=== PATIENT | female | born 1990 | race Caucasian/White ===

== ENCOUNTER 2025-08-25 10:20 | Observation (INO) ==
[2025-08-25] MEDS: SODIUM CHLORIDE 0.9% 1,000 ML IV SCH (11:00)
[2025-08-25] MEDS: ONDANSETRON INJ 2 MG/ML 2 ML VIAL IV STA ×2 (11:00→12:35)
[2025-08-25 11:04] LABS: Hematocrit (blood only) 44.9 % (37.0-47.0); Hemoglobin 14.9 g/dL (12.0-16.0); Immature Granulocytes # (auto) 0.03 K/uL (0.01-0.20); Immature Granulocytes % (auto) 0.4 %; Mean Corpuscular Hemoglobin 29.6 pg (25.0-34.0); Mean Corpuscular Volume 89.3 fL (80.0-100.0); Platelet Count 212 K/uL (130-400); RDW Standard Deviation 42.2 fL (36.4-46.3); Red Blood Count 5.03 M/uL (4.20-5.40); White Blood Count 7.73 K/ul (4.8-10.8)
--- NOTE | 2025-08-25 11:04 | Emergency Department Note ---
Impression & Plan Vomiting, Diffuse abdominal pain, Unintentional Tylenol overdose ED Provider Note NAME: EULALIA CHEN AGE: 35 SEX: F : 1990 ARRIVES VIA: Walk-In INFORMANT: [Patient] ED PROVIDER(S): [Mian Aguila MD] CHIEF COMPLAINT: Vomiting HISTORY OF PRESENT ILLNESS: The patient is a 35-year-old female who states that she was having dental pain yesterday and as a result, she took 2500 mg of Tylenol multiple times throughout the day (500 mg tablets x 5). She took the 2500 mg amount all at once. She thinks that she may have taken the 2500 mg dose of Tylenol 8-9 times throughout the day yesterday from 4:30 AM till 6 PM last night. Now, for the last 14 hours, she has been vomiting and has crampy abdominal pain. No diarrhea. No cough or cold or congestion. No other complaints or concerns. Patient denies suicidal intent. She states that she was just desperate for something to help with her pain. PMHx/PSHx/Social Hx: See Below PHYSICAL EXAM: GENERAL: Patient is in no acute distress. HEENT: No acute trauma, normocephalic atraumatic, mucous membranes moist, no nasal congestion. NECK: No stridor, no adenopathy, no meningismus, trachea is midline. LUNGS: Clear to auscultation bilaterally, no wheeze, no rhonchi, breath sounds equal. HEART: Mildly tachycardic, regular rhythm, no murmurs. ABDOMEN: Soft, mildly diffusely tender, no peritonitis. EXTREMITIES: No cyanosis, full range of motion of all the joints without pain or difficulty. NEUROLOGIC: Oriented x 3, no acute motor or sensory deficits, no focal weakness. SKIN: No jaundice, no diaphoresis. DIFFERENTIAL DIAGNOSIS: Toxic Tylenol overdose, liver injury, dehydration, electrolyte imbalance, among others. EMERGENCY DEPARTMENT PROCEDURES: MEDICAL DECISION MAKING: There is no leukocytosis or concerning anemia. There is a normal platelet count. No bandemia. No coagulopathy. No renal failure or significant electrolyte abnormality. No concerning liver enzyme elevation. testing was negative. Aspirin and alcohol levels were undetectable. Tylenol level was 11. Alcohol level was undetectable. Urine tox was negative. Urinalysis showed some potential dehydration, no infection. On exam, the patient was not toxic or febrile. She complained of nausea. I did speak with the poison center, they recommended the N-acetylcysteine protocol for the overdose as well as hospital admission. The N-acetylcysteine protocol was ordered IV. Patient received IV Zofran and IV saline. She received an additional dose of IV Zofran and a dose of IV Phenergan. The patient is in need of a hospital admission and further care for this accidental overdose. Because of concerns for potential liver injury from the large amount of Tylenol ingested, the N-acetylcysteine protocol was initiated IV. I spoke with case management, the on-call hospitalist was consulted. Prior/Outside records/notes reviewed: None EKG per my interpretation: Indication was overdose. The ECG shows a normal sinus rhythm with a rate of 62. There is poor R wave progression. There is no ST elevation, no PVCs. The QTc is 438. Imaging/x-ray results per my interpretation: Chronic Medical/Social conditions affecting care: None Care/Management discussed with: [facility]--[facility]. Case management and the on-call hospitalist. Level of care consideration(s): After review of the information above and other included data: --I believe the patient requires escalation of care to admission Critical Care Note: I have personally spent 46minutes of critical care time in the direct management of this patient. This includes bedside care, interpretation of diagnostic studies, and testing, discussion with consultants, patient, and family members, and other required patient management activities. This 46 minutes is in excess of all separately billable procedures. DISPOSITION: Admission Past Med/Surg History Problem List FH: cholecystectomy Unintentional Tylenol overdose (Acute) Diffuse abdominal pain (Acute) Vomiting (Acute) Medical History No significant medical problems Surgical History H/O: hysterectomy S/P gastric sleeve procedure Family History (Updated 08/25/25 @ 12:28 by Kirk Duarte MD) Father Alcohol use disorder Mother Mood disorder Social History Smoking Status: Never smoker Hx Substance Use: No Preferred Language: Lao Feels Safe at Home: Yes Allergies Allergies Allergy/AdvReac Type Severity Reaction Status Date / Time diphenhydramine Allergy Intermediate Hives Verified 08/25/25 10:59 kiran Allergy Itching Verified 08/25/25 10:59 Home Meds Home Medications Medication Instructions Recorded Confirmed No Known Home Medications 08/25/25 08/25/25 Results & Data (ED) Vital Signs Vital Signs - 24 hr 08/25/25 10:25 08/25/25 12:20 Temperature 36.6 C Temperature Source Temporal Artery Scan Pulse Rate 101 H Pulse Rate [Finger] 88 Pulse Rhythm [Finger] Regular Pulse Strength [Finger] Normal Respiratory Rate 20 16 Respiratory Effort / Characteristics Non-Labored Spontaneous Non-Labored Spontaneous Respiratory Depth Normal Normal Respiratory Pattern Regular Regular Blood Pressure 134/97 Blood Pressure [Right Arm] 128/81 Blood Pressure Mean 109 Blood Pressure Mean [Right Arm] 96 Pulse Oximetry 95 99 Oxygen Delivery Method Room Air Room Air Sepsis Recent Fever Within 48 Hours No Sepsis New/Unexplained Change in Mental Status N/A Sepsis Action Taken by Nursing No Action Required Home Medications Current Medication List: was personally reviewed by me Laboratory Data Attestation: I reviewed the patient's lab results. 08/25/25 10:45 08/25/25 10:45 Lab Results 08/25/25 08/25/25 Range/Units 10:45 11:55 WBC 7.73 (4.8-10.8) K/ul RBC 5.03 (4.20-5.40) M/uL Hgb 14.9 (12.0-16.0) g/dL Hct 44.9 (37.0-47.0) % MCV 89.3 (80.0-100.0) fL MCH 29.6 (25.0-34.0) pg MCHC 33.2 (32.0-36.0) g/dL RDW Std Deviation 42.2 (36.4-46.3) fL RDW Coeff of [place] 12.9 (11.5-14.5) % Plt Count 212 (130-400) K/uL MPV 11.9 (9.4-12.4) fL Immature Gran % (Auto) 0.4 % Neut % (Auto) 86.1 % Lymph % (Auto) 9.7 % [place] % (Auto) 3.5 % Eos % (Auto) 0.0 % Baso % (Auto) 0.3 % Neut # (Auto) 6.66 H (1.40-6.50) K/uL Lymph # (Auto) 0.75 L (1.20-3.40) K/uL [place] # (Auto) 0.27 (0.11-0.59) K/uL Eos # (Auto) 0.00 (0.00-0.50) K/uL Baso # (Auto) 0.02 (0.00-0.20) K/uL Immature Gran # (Auto) 0.03 (0.01-0.20) K/uL PT 11.6 (9.0-12.0) Seconds INR 1.1 (0.9-1.1) APTT 29 (21-31) Seconds PTT Ratio 1.1 Sodium 138 (136-145) mmol/L Potassium 3.7 (3.5-5.1) mmol/L Chloride 104 (98-107) mmol/L Carbon Dioxide 26 (21-32) mmol/L Anion Gap 8 (3-11) BUN 8 (6-23) mg/dl Creatinine 0.83 (0.6-1.2) mg/dl Est Cr Clr Drug Dosing 112.7 ml/min eGFR 93.64 BUN/Creatinine Ratio 9.6 L (10-20) Glucose 115 H (70-99(Fasting)) mg/dl Calcium 9.4 (8.6-10.3) mg/dl Magnesium 1.9 (1.7-2.4) mg/dl Total Bilirubin 0.6 (0.2-1.0) mg/dl AST 16 (13-39) U/L ALT 10 (7-52) U/L Alkaline Phosphatase 62 (34-104) U/L Total Protein 7.5 (6.0-8.3) gm/dl Albumin 4.5 (3.4-5.0) gm/dl Globulin 3.0 (2.5-4.0) gm/dl Albumin/Globulin Ratio 1.5 (0.9-2) HCG, Qual Negative (Negative) Urine Color Yellow Urine Appearance Clear (Clear) Urine pH 6.0 (4.5-7.5) Ur Specific [place] 1.008 (1.000-1.030) Urine Protein Negative (Negative) Urine Glucose (UA) Negative (Negative) Urine Ketones Trace H (Negative) Urine Blood Negative (Negative) Urine Nitrite Negative (Negative) Urine Bilirubin Negative (Negative) Urine Urobilinogen Negative (Negative) Ur Leukocyte Esterase Negative (Negative) Urine Comment Salicylates < 3.0 L (3.0-30) mg/dl Urine Opiates Screen Neg (Neg) Ur Methadone, Qual Neg (Neg) Urine Fentanyl Screen Neg (Neg) Acetaminophen 11 (10-30) ug/ml Urine Barbiturates Neg (Neg) Ur Phencyclidine (PCP) Neg (Neg) U Amphetamin/Meth Scrn Neg (Neg) MDMA (Ecstasy) Screen Neg (Neg) U Benzodiazepines Scrn Neg (Neg) Ur Cocaine Metabolite Neg (Neg) U Marijuana (THC) Screen Neg (Neg) Ethyl Alcohol mg/dL < 10.0 (<10.0) mg/dl Administered Medications Discontinued Medications Acetylcysteine (Acetylcysteine Iv 21 Hr Regimen (>40kg)) 1 each IV NOW STA; Protocol Stop: 08/25/25 11:10 Last Admin: 08/25/25 13:13 Dose: Not Given Documented By: TAYLOR Sodium Chloride (Nss) 1,000 mls @ 999 mls/hr IV .Q1H1M EFRAIN Stop: 08/25/25 12:00 Last Infusion: 08/25/25 12:05 Dose: Infused Documented By: yulisa Admin: 08/25/25 11:00 Dose: 999 mls/hr Documented By: yulisa Acetylcysteine 15,000 mg/ (Dextrose) 275 mls @ 200 mls/hr IV ONCE ONE; Protocol Stop: 08/25/25 12:34 Last Admin: 08/25/25 11:51 Dose: 200 mls/hr Documented By: yulisa Promethazine HCl (Phenergan) 6.25 mg in 50.25 mls @ 201 mls/hr IV NOW STA Stop: 08/25/25 12:39 Last Infusion: 08/25/25 12:57 Dose: Infused Documented By: yulisa Admin: 08/25/25 12:34 Dose: 201 mls/hr Documented By: yulisa Miscellaneous (Stat Iv/Im) 1 each N/A NOW STA Stop: 08/25/25 11:10 Last Admin: 08/25/25 13:14 Dose: Not Given Documented By: TAYLOR Ondansetron HCl (Ondansetron Inj 2 Mg/Ml 2 Ml Vial) 4 mg IV NOW STA Stop: 08/25/25 10:52 Last Admin: 08/25/25 11:00 Dose: 4 mg Documented By: yulisa Ondansetron HCl (Ondansetron Inj 2 Mg/Ml 2 Ml Vial) 4 mg IV NOW STA Stop: 08/25/25 12:26 Last Admin: 08/25/25 12:35 Dose: 4 mg Documented By: yulisa Discharge Plan Visit Data Chief Complaint: Vomiting Stated Complaint: VOMITTING, LIGHTHEADED ED Provider: Mina Aguila Discharge Problem: Vomiting, Diffuse abdominal pain, Unintentional Tylenol overdose Patient Disposition: Admitted As Inpatient Condition: Serious Forms Stand Alone Forms: [employer] Prescriptions Prescriptions: No Action No Known Home Medications Referrals Referrals: PCP,NO [Physician] - Discharge Problem: Vomiting Qualifiers: Vomiting type: unspecified Nausea presence: with nausea Qualified Code(s): R 11.2 - Nausea with vomiting, unspecified Unintentional Tylenol overdose Qualifiers: Encounter type: initial encounter Qualified Code(s): T39.1X1A - Poisoning by 4- Aminophenol derivatives, accidental (unintentional), initial encounter
[2025-08-25 11:23] LABS: Alanine Aminotransferase 10.0 U/L (7-52); Albumin Globulin Ratio 1.5 (0.9-2); Albumin Level 4.5 gm/dl (3.4-5.0); Alkaline Phosphatase 62.0 U/L (34-104); Anion Gap 8.0 (3-11); Bilirubin,Total 0.6 mg/dl (0.2-1.0); Blood Urea Nitrogen 8.0 mg/dl (6-23); Calcium 9.4 mg/dl (8.6-10.3); Carbon Dioxide 26.0 mmol/L (21-32); Chloride 104.0 mmol/L (98-107); Creatinine Clr Calc Pharmacy 112.7 ml/min; Globulin 3.0 gm/dl (2.5-4.0); Glucose 115.0 mg/dl (70-99(Fasting)); Magnesium 1.9 mg/dl (1.7-2.4); Potassium 3.7 mmol/L (3.5-5.1); Pregnancy Test, Serum Negative (Negative); Sodium 138.0 mmol/L (136-145); Total Protein 7.5 gm/dl (6.0-8.3)
[2025-08-25 11:25] LABS: Acetaminophen 11 ug/ml (10-30); Salicylate < 3.0 mg/dl (3.0-30)
[2025-08-25 11:33] LABS: INR 1.1 (0.9-1.1); Partial Thromboplastin Time 29 Seconds (21-31); Prothrombin Time 11.6 Seconds (9.0-12.0)
--- NOTE | 2025-08-25 11:52 | History & Physical Report ---
Date of Service August 25, 2025 Assessment & Plan (1) Unintentional Tylenol overdose: (2) Vomiting: Plan Unintentional Tylenol overdose Intractable nausea, vomiting Dehydration due to above --KUB pending -- Acetaminophen level 11 --INR 1.1 -- LFTs within normal limits --Drug screen pending Avoid Tylenol, hepatotoxic agents Poison control involved Started on acetylcysteine protocol Liquid diet for now Gentle IV fluids Monitor LFTs, INR Recheck acetaminophen level tomorrow Advance diet as tolerated Antiemetics as needed Hyperglycemia Check HbA1c Morbid obesity S/P gastric sleeve surgery Previously on Wegovy--currently discontinued due to insurance issues BMI 43 Other chronic conditions: Mood disorder-previously on bupropion. Stable PCOS Dysmenorrhea S/P hysterectomy Currently not on any medications DVT Px: Heparin SQ CODE STATUS Full code Disposition Admit to [facility] I personally interviewed and examined the patient at bedside. Reviewed blood work, EKG, imaging studies. Discussed with the ED staff. I spent a total [id number] coordinating, documenting, and providing care for this patient. History of Present Illness Chief Complaint: Nausea, vomiting Primary Care Provider: Fely Archer MD Patient is a 35-year-old female with history of mood disorder, obesity S/P gastric sleeve surgery, PCOS, dysmenorrhea S/P hysterectomy and no other significant past medical history presents with intractable nausea, vomiting and abdominal discomfort secondary to vomiting. Patient states that she had dental work (root canal for dental caries) on Wednesday and was supposed to have crown placement on August 30. While she was at a camping site, patient developed significant tooth ache yesterday and when called her dentist, he recommended to take Tylenol for pain control. Patient admits to take 5 pills of 500 mg acetaminophen tabs about 8-9 times yesterday. She started to take at 4 AM and her last dose was 6 PM yesterday. She had several episodes of nausea, vomiting which started overnight associated with some abdominal soreness. She admits to taking Zofran but was still not able to keep food/fluids. Her last bowel movement was this morning. She also noticed to have dizziness and so came to ED for further evaluation. Denies any history of chest pain, dyspnea, pedal edema, cough, fever, chills, headache, blood in stools, diarrhea, dysuria, hematuria. Currently states that her dental pain resolved. ED physician discussed with poison control, on recommendations from poison control patient was started on acetylcysteine. Patient denies any suicidal thoughts. Allergies Allergy/AdvReac Type Severity Reaction Status Date / Time diphenhydramine Allergy Intermediate Hives Verified 08/25/25 10:59 kiran Allergy Itching Verified 08/25/25 10:59 Home Medications Medication Instructions Recorded Confirmed Type No Known Home Medications 08/25/25 08/25/25 History Past Med/Surg History Problem List (Updated 08/25/25 @ 12:27 by Kirk Duarte MD) S/P gastric sleeve procedure FH: cholecystectomy H/O: hysterectomy Unintentional Tylenol overdose (Acute) Diffuse abdominal pain (Acute) Vomiting (Acute) Family History (Updated 08/25/25 @ 12:28 by Kirk Duarte MD) Father Alcohol use disorder Mother Mood disorder Social History (Updated 08/25/25 @ 12:29 by Kirk Duarte MD) Smoking Status: Never smoker Hx Substance Use: No Preferred Language: Wolof Feels Safe at Home: Yes Review of Systems Review of Systems: All systems reviewed & are unremarkable except as noted in Subjective Physical Exam Physical Exam: Physical Exam: Vitals signs as noted above General Appearance: Obese, no apparent distress Head: normocephalic, Atraumatic Eyes: normal inspection, EOMI Neck: supple, Trachea midline Respiratory/Chest: Normal breath sounds, CTA, No accessory muscle use Cardiovascular: S1, S2, No murmur Abdomen/GI:Soft, Non tender, Bowel sounds present Extremities/Musculoskeletal:normal inspection, no edema Neurologic/Psych:AAOX3, grossly no focal neurological deficits Skin: normal color, warm Results & Data Results & Data Vital Signs (Past 12 Hours) Vital Signs Temp Pulse Resp BP Pulse Ox O2 Del Method 08/25/25 10:25 36.6 C 101 H 20 134/97 95 Room Air Laboratory Results Short CBC 08/25/25 Range/Units 10:45 WBC 7.73 (4.8-10.8) K/ul Hgb 14.9 (12.0-16.0) g/dL Hct 44.9 (37.0-47.0) % Plt Count 212 (130-400) K/uL BMP 08/25/25 10:45 Sodium 138 Potassium 3.7 Chloride 104 Carbon Dioxide 26 BUN 8 Creatinine 0.83 Glucose 115 H Calcium 9.4 Liver Function 08/25/25 Range/Units 10:45 Total Bilirubin 0.6 (0.2-1.0) mg/dl AST 16 (13-39) U/L ALT 10 (7-52) U/L Alkaline Phosphatase 62 (34-104) U/L Albumin 4.5 (3.4-5.0) gm/dl Urine 08/25/25 Range/Units 11:55 Urine Color Yellow Urine Appearance Clear (Clear) Urine pH 6.0 (4.5-7.5) Ur Specific [place] 1.008 (1.000-1.030) Urine Protein Negative (Negative) Urine Glucose (UA) Negative (Negative) Diagnostic Findings --KUB pending ECG Additional Comments: --EKG: Normal sinus rhythm, low voltage, QTc 438 (1) Unintentional Tylenol overdose Encounter type: initial encounter Qualified Code(s): T39.1X1A - Poisoning by 4-Aminophenol derivatives, accidental (unintentional), initial encounter (2) Vomiting Nausea presence: with nausea Vomiting type: unspecified Qualified Code(s): R11.2 - Nausea with vomiting, unspecified
[2025-08-25 12:13] LABS: Appearance Urine Clear (Clear); Glucose Urine UA Negative (Negative)
[2025-08-25] MEDS: PROMETHAZINE 6.25 MG/50.25 ML BAG IV STA (12:34)
[2025-08-25 12:42] LABS: Amphetamines+Metham, Urine Neg (Neg); MDMA (Ecstacy), Urine Neg (Neg); Marijuana, Urine Neg (Neg)
[2025-08-25] MEDS: AcetylCYSTEINE IV 21 HR REGIMEN (>40KG) IV STA (13:13)
[2025-08-25] MEDS: STAT IV/IM STA (13:14)
[2025-08-25] MEDS ORDERED: POLYETHYLENE (MIRALAX) 17 GM PACK PO PRN (13:43)
[2025-08-25] MEDS: LACTATED RINGER'S 1,000 ML IV SCH (13:59)
[2025-08-25] MEDS: ONDANSETRON INJ 2 MG/ML 2 ML VIAL IV PRN (14:04)
--- NOTE | 2025-08-25 14:17 | Electrocardiogram Report ---
Test Reason : Blood Pressure : */* mmHG Vent. Rate : 62 BPM Atrial Rate : 62 BPM P-R Int : 130 ms QRS Dur : 80 ms QT Int : 432 ms P-R-T Axes : 67 -15 0 degrees QTcB Int : 438 ms Normal sinus rhythm No previous ECGs available Confirmed by Mike Tapia ([id number]) on 08/25/2025 2:16:43 PM Referred By: REFERRED SELF Confirmed By: Mike Tapia
--- NOTE | 2025-08-25 15:17 | XRay Report ---
2 views of the abdomen were obtained Findings: The bowel gas pattern appears unremarkable. No renal or ureteral calculi are seen. No foreign body is evident. No osseous abnormality is seen. Surgical clips are seen suggestive of prior cholecystectomy Impression: Unremarkable abdominal radiographs Electronically signed by Aneudy Downs 08-25-2025 3:17 PM
[2025-08-25] MEDS: PROMETHAZINE 6.25 MG/50.25 ML BAG IV PRN (16:16)
[2025-08-25] MEDS: HEPARIN SOD 5,000 UNIT/0.5 ML VIAL SQ SCH (20:10)
[2025-08-25] MEDS: KETOROLAC TROMETHAMINE 15 MG/ML VIAL IV ONE (23:04)
[2025-08-25] MEDS: OPTIRAY 320 100ml IV ONE (23:11)
--- NOTE | 2025-08-26 01:12 | Communication Note ---
Date of Service: August 26, 2025
--- NOTE | 2025-08-26 02:47 | CT Scan Report ---
Exam(s): CT ABDOMEN + PELVIS With Contrast IV Amt: 90 ml [id number] EXAM: CT Abdomen and Pelvis With Intravenous Contrast CLINICAL HISTORY: Abdominal Pain. TECHNIQUE: Axial computed tomography images of the abdomen and pelvis with intravenous contrast. CTDI is 27.83 mGy and DLP is 1497.24 mGy-cm. Automated exposure control was utilized for the study. A dose lowering technique was utilized adhering to the principles of ALARA. CONTRAST: Patient received 90 ml [id number] of IV contrast COMPARISON: KUB earlier today FINDINGS: Lung bases: Unremarkable. No mass. No consolidation. ABDOMEN: Liver: there is an indeterminate 1.6 cm lesion of the hepatic segment 7. No other suspicious hepatic lesion. Gallbladder and bile ducts: Unremarkable. No calcified stones. No ductal dilation. Pancreas: Unremarkable. No mass. No ductal dilation. Spleen: There is an indeterminate 1.7 cm splenic lesion. Adrenals: Unremarkable. No mass. Kidneys and ureters: Unremarkable. No solid mass. No hydronephrosis. Stomach and bowel: Diverticulosis. No obstruction. No mucosal thickening. PELVIS: Appendix: Normal appendix. Bladder: Unremarkable. No mass. Reproductive: Hysterectomy. ABDOMEN and PELVIS: Intraperitoneal space: Unremarkable. No free air. No significant fluid collection. Bones/joints: No acute fracture. No dislocation. Soft tissues: A small fat containing umbilical hernia is present. Vasculature: Unremarkable. No abdominal aortic aneurysm. Lymph nodes: Unremarkable. No enlarged lymph nodes. IMPRESSION: 1. There is an indeterminate 1.7 cm splenic lesion. Recommend further evaluation with PET, abdominal MRI or biopsy. 2. There is an indeterminate 1.6 cm lesion of the hepatic segment 7. Recommend further evaluation with hepatic MRI on a nonemergent basis. 3. Diverticulosis. Electronically signed by: Nina Arnold MD 08/26/25 02:46 AM
[2025-08-26 07:13] VITALS: BP 117/68; PULSE 71; RESP 16; TEMP 98.4; O2SAT 96
[2025-08-26 07:13] LABS: Hematocrit (blood only) 35.0 % (37.0-47.0); Hemoglobin 11.7 g/dL (12.0-16.0); Mean Corpuscular Hemoglobin 29.5 pg (25.0-34.0); Mean Corpuscular Volume 88.2 fL (80.0-100.0); Platelet Count 153 K/uL (130-400); RDW Standard Deviation 43.3 fL (36.4-46.3); Red Blood Count 3.97 M/uL (4.20-5.40); White Blood Count 6.00 K/ul (4.8-10.8)
[2025-08-26 07:32] LABS: Alanine Aminotransferase 21.0 U/L (7-52); Albumin Globulin Ratio 1.6 (0.9-2); Albumin Level 3.3 gm/dl (3.4-5.0); Alkaline Phosphatase 43.0 U/L (34-104); Anion Gap 6.0 (3-11); Bilirubin,Total 0.5 mg/dl (0.2-1.0); Blood Urea Nitrogen 5.0 mg/dl (6-23); Calcium 8.4 mg/dl (8.6-10.3); Carbon Dioxide 26.0 mmol/L (21-32); Chloride 108.0 mmol/L (98-107); Creatinine Clr Calc Pharmacy 120.2 ml/min; Globulin 2.1 gm/dl (2.5-4.0); Glucose 99.0 mg/dl (70-99(Fasting)); Potassium 3.4 mmol/L (3.5-5.1); Sodium 140.0 mmol/L (136-145); Total Protein 5.4 gm/dl (6.0-8.3)
[2025-08-26 07:41] LABS: Hemoglobin A1C 5.1 % (4.5-5.6)
[2025-08-26 07:43] LABS: INR 1.2 (0.9-1.1); Prothrombin Time 12.7 Seconds (9.0-12.0)
--- NOTE | 2025-08-26 13:53 | Discharge Summary ---
Date of Service August 26, 2025 Admission HPI Per Admitting Provider Patient is a 35-year-old female with history of mood disorder, obesity S/P gastric sleeve surgery, PCOS, dysmenorrhea S/P hysterectomy and no other significant past medical history presents with intractable nausea, vomiting and abdominal discomfort secondary to vomiting. Patient states that she had dental work (root canal for dental caries) on Wednesday and was supposed to have crown placement on August 30. While she was at a camping site, patient developed significant tooth ache yesterday and when called her dentist, he recommended to take Tylenol for pain control. Patient admits to take 5 pills of 500 mg acetaminophen tabs about 8-9 times yesterday. She started to take at 4 AM and her last dose was 6 PM yesterday. She had several episodes of nausea, vomiting which started overnight associated with some abdominal soreness. She admits to taking Zofran but was still not able to keep food/fluids. Her last bowel movement was this morning. She also noticed to have dizziness and so came to ED for further evaluation. Denies any history of chest pain, dyspnea, pedal edema, cough, fever, chills, headache, blood in stools, diarrhea, dysuria, hematuria. Currently states that her dental pain resolved. ED physician discussed with poison control, on recommendations from poison control patient was started on acetylcysteine. Patient denies any suicidal thoughts. Admission Exam Per Admitting Provider General Appearance: Obese, no apparent distress Head: normocephalic, Atraumatic Eyes: normal inspection, EOMI Neck: supple, Trachea midline Respiratory/Chest: Normal breath sounds, CTA, No accessory muscle use Cardiovascular: S1, S2, No murmur Abdomen/GI:Soft, Non tender, Bowel sounds present Extremities/Musculoskeletal:normal inspection, no edema Neurologic/Psych:AAOX3, grossly no focal neurological deficits Skin: normal color, warm Principal Diagnosis Unintentional Tylenol overdose Intractable nausea, vomiting Dehydration due to above Discharge Exam General Appearance: Obese, no apparent distress, on RA Head: normocephalic, Atraumatic Eyes: normal inspection, EOMI Neck: supple, Trachea midline Respiratory/Chest: Normal breath sounds, CTA, No accessory muscle use Cardiovascular: S1, S2, No murmur Abdomen/GI:Soft, Non tender, Bowel sounds present Extremities/Musculoskeletal:normal inspection, no edema Neurologic/Psych:AAOX3, grossly no focal neurological deficits Skin: normal color, warm Discharge Data Allergies Allergy/AdvReac Type Severity Reaction Status Date / Time diphenhydramine Allergy Intermediate Hives Verified 08/25/25 10:59 kiran Allergy Itching Verified 08/25/25 10:59 Consultations 08/25/25 11:45 ED Decision to Admit Stat Ordered Studies 08/25/25 22:56 CT Abd and Pelvis [CT abd pelvis IV con only] Stat Hospital Course (1) Unintentional Tylenol overdose: (2) Vomiting: Plan 35-year-old lady with PMH of mood disorder, obesity status post gastric sleeve surgery, PCOS, dysmenorrhea status post hysterectomy presents with intractable nausea, vomiting, abdominal discomfort secondary to vomiting in the setting of unintentional Tylenol overdose. Patient denied SI/HI. Poison control was involved, patient was initiated on N-acetylcysteine infusion. Patient completed the N-acetylcysteine IV. RN communicated with poison control today, given her improvement in the labs finding and how she is doing they signed off per RN. Patient does not have further nausea, vomiting and is tolerating diet well. Patient is hemodynamically stable and would like to go home. Her LFT and PT/INR fairly acceptable. Her Tylenol level is less than 10. Patient was made aware of incidental finding of hepatic splenic lesion and need for follow-up with PCP office as an outpatient. She voiced understanding. Patient is being discharged with following instructions at the point of discharge: Follow-up with your primary care physician within a week time and likely you will need labs CBC/CMP/magnesium/phosphorus. You were evaluated for unintentional Tylenol overdose, you received N- acetylcysteine infusion. As already discussed, we recommend that you repeat your liver function test in about a week time at your PCP office. As discussed at the bedside, recommend that you continue with the lifestyle modification/dietary changes/weight loss. As discussed at the bedside, there was note of splenic lesion [1.7 cm] and hepatic lesion [1.6 cm]. Recommend that you follow-up with the PCP office for setting up for abdominal MRI as an outpatient for further ongoing evaluation and management. If you have increasing nausea/vomiting/abdominal pain/profound weakness, refer back to emergency. Take your medications as prescribed. Please make sure that you are able to get your medications today by calling your pharmacy before you leave the hospital so that your treatment continuity is not broken. Home Health Attestation I certify that this patient is under my care and that I, or a physicians ex assistant/program director working with me, had a face to-face encounter that meets the home health [id number] encounter requirements with this patient. The encounter with the patient was in whole, or in part, for the following medical condition, which is the primary reason for home health care (list medical condition): I certify that, based on my findings, the following services are medically necessary home health services: My clinical findings support the need for the above services because: Further, I certify that my clinical findings support that this patient is homebound (i.e. absences from home require considerable and taxing effort and are for medical reasons or anabaptist services or infrequently or of short duration when for other reasons) because: Certification for Home Health Services: Based on the above findings, I certify that this patient is confined to the home and needs intermittent correction care, physical therapy and/or speech therapy or continues to need occupational therapy. The patient is under my care, and I have initiated the establishment of the plan of care. This patient will be followed by a physician who will periodically review the plan of care. Total Time Total Time Spent Total Time Spent (In Minutes): 45 Discharge Plan Discharge Items Patient Disposition: Home - Self-Care Reason For Visit: ACETAMINOPHEN OVERDOSE Discharge Diagnosis: Unintentional Tylenol overdose Intractable nausea, vomiting Dehydration due to above Condition on Discharge: Serious Activity: Resume your previous activity Non-emergency contact: Primary Care Provider Call non-emergency contact if: you have any medication questions Follow-up/Referrals: Fely Archer MD [Primary Care Provider] - Diet: Regular Addtl Attending Provider Instructions: Follow-up with your primary care physician within a week time and likely you will need labs CBC/CMP/magnesium/phosphorus. You were evaluated for unintentional Tylenol overdose, you received N- acetylcysteine infusion. As already discussed, we recommend that you repeat your liver function test in about a week time at your PCP office. As discussed at the bedside, recommend that you continue with the lifestyle modification/dietary changes/weight loss. As discussed at the bedside, there was note of splenic lesion [1.7 cm] and hepatic lesion [1.6 cm]. Recommend that you follow-up with the PCP office for setting up for abdominal MRI as an outpatient for further ongoing evaluation and management. If you have increasing nausea/vomiting/abdominal pain/profound weakness, refer back to emergency. Take your medications as prescribed. Please make sure that you are able to get your medications today by calling your pharmacy before you leave the hospital so that your treatment continuity is not broken. Pending Studies at Discharge: No Stand-Alone Forms: [facility], Smoking Cessation Medications and DC Order Prescriptions: New ondansetron 4 mg tablet,disintegrating 4 mg PO BID PRN (Reason: nausea and vomiting) Qty: 10 0RF Discharge Orders: Discharge Order (Routine); Ordered 08/26/25 Ordered By: Sasha Garcia Admission Data Admit Date/Time: 08/25/25 12:21 Attending Provider: Sasha Garcia Admit Provider: Kikr Duarte Primary Care Provider: Fely Archer Other Providers: Kirk Daurte
--- NOTE | 2025-08-27 09:51 | Electrocardiogram Report ---
Test Reason : Blood Pressure : */* mmHG Vent. Rate : 72 BPM Atrial Rate : 72 BPM P-R Int : 130 ms QRS Dur : 84 ms QT Int : 398 ms P-R-T Axes : 22 -15 10 degrees QTcB Int : 435 ms Normal sinus rhythm Cannot rule out Anterior infarct (cited on or before 25-Aug-2025) Abnormal ECG When compared with ECG of 25-Aug-2025 11:21, No significant change was found Confirmed by Maikel Azar ([id number]) on 08/27/2025 9:50:56 AM Referred By: REFERRED SELF Confirmed By: Maikel Azar
== END 2025-08-26 14:52 | disposition home or self-care (01) | DRG 918 ==
LOC: ED 10:20 → SUATTDRO 12:21 → 3N 12:21 → INTOOBSV 12:21 → 3N 13:27